=== PATIENT | male | born 1995 | race African-American/Black ===

== ENCOUNTER 2017-07-14 23:02 | Emergency (ER) | payer SELFPAY ==
[~2017-07-14] VITALS: Ht 188 cm; Wt 88.5 kg
[2017-07-14 23:15] VITALS: BP_SYST 154
--- NOTE | 2017-07-14 23:15 | NUR ---
Patient AAO x4, assessed in triage room. Patient states he's here for medical evaluation, had protected sex with a partner 1 week ago and told today that his partner has herpes simplex virus of the genitals. No blisters noted to genital region or back, no complaint of pain. Patient asymptomatic at this time. No acute distress noted. Will continue to monitor.
--- NOTE | 2017-07-14 23:16 | NUR ---
DARYL Alex in [facility] examining patient.
[2017-07-14] MEDS ORDERED: AZITHROMYCIN 250 MG TABLET PO ONE (23:45)
[2017-07-14 23:54] LABS: BILIRUBIN,URINE NEGATIVE (NEGATIVE); BLOOD, URINE NEGATIVE (NEGATIVE); CLARITY/URINE CLEAR (CLEAR); COLOR,URINE YELLOW (YELLOW); GLUCOSE,URINE NEGATIVE (NEGATIVE); KETONES,URINE NEGATIVE (NEGATIVE); LEUKOCYTE ESTERASE ,URINE NEGATIVE (NEGATIVE); NITRITE, URINE NEGATIVE (NEGATIVE); PH,URINE 7.5 (5.0-8.0); PROTEIN URINE NEGATIVE (NEGATIVE); UROBILINOGEN,URINE 0.2 (0.2-1.0)
--- NOTE | 2017-07-14 23:55 | NUR ---
ER at bedside examining patient.
[2017-07-15 00:04] VITALS: BP_SYST 125
--- NOTE | 2017-07-15 00:04 | NUR ---
Patient given written and verbal discharge instructions and verbalizes understanding. ER MD discussed with patient the results and treatment provided. Patient in stable condition. ID arm band removed. No Rx given. Patient educated on pain management and to follow up with PMD. Pain Scale 0/10. Opportunity for questions provided and answered regarding herpes simplex virus and follow up for lab results.
== END 2017-07-15 00:04 | disposition home or self-care (01) ==
LOC: SED 23:02
DX: Z20.2 Contact with and (suspected) exposure to infections with a predominantly sexual mode of transmission (principal)
CPT/HCPCS: 81003; 87491; 87591; 99284; Q0144